=== PATIENT | male | born 1965 | race Caucasian/White ===

== ENCOUNTER 2019-06-03 18:51 | Observation (INO) | payer MEDICARE, OTHER ==
[~2019-06-03] VITALS: Ht 190.5 cm; Wt 129.5 kg
[2019-06-03 09:30] VITALS: BP 115/79; PULSE 79; RESP 18
[~2019-06-03 18:51] MED LIST: AMLO1CAP12 PO; ASPI-817 PO; ATOR40TA68 PO; CLOP75TA27 PO; FENO160T13 PO; METO-319 PO
[2019-06-03] MEDS ORDERED: ONDANSETRON 4 MG INJ IV STA (18:53)
[2019-06-03] MEDS ORDERED: KETOROLAC 15 MG INJ IV STA (18:53)
[2019-06-03] MEDS ORDERED: NACL 0.9% 3 ML SYG IV SCH (20:00)
[2019-06-03] MEDS ORDERED: hydrALAzine 20 MG INJ IV PRN (20:00)
[2019-06-03] MEDS ORDERED: BISACODYL (EC) 5 MG TAB PO PRN (20:00)
[2019-06-03] MEDS ORDERED: NITROGLYCERIN (SL) 0.4 MG TAB SL PRN (20:00)
[2019-06-03] MEDS ORDERED: morphine 2 MG INJ IV PRN (20:00)
[2019-06-03] MEDS ORDERED: ONDANSETRON 4 MG INJ IV PRN (20:00)
[2019-06-03] MEDS ORDERED: ACETAMINOPHEN 325 MG TAB PO PRN (20:00)
[2019-06-03] MEDS ORDERED: DOCUSATE SODIUM 100 MG CAP PO PRN (20:00)
[2019-06-03 21:00] VITALS: BP 115/79; PULSE 79; RESP 18
[2019-06-03] MEDS ORDERED: ATORVASTATIN 40 MG TAB PO SCH (21:00)
[2019-06-03 22:42] VITALS: Ht 190.5 cm; Wt 129.5 kg
[2019-06-04] VITALS: BP 104/68; PULSE 71; RESP 18
[2019-06-04 04:00] VITALS: BP 128/86; PULSE 59; RESP 18
[2019-06-04 07:22] VITALS: BP 109/75; PULSE 62; RESP 18
[2019-06-04] MEDS ORDERED: NON-FORMULARY/PATIENT OWN MED (Amlodipine Besylate/Benazepril (Amlodipine-Benazepril 10-20 PO SCH (09:00)
[2019-06-04] MEDS ORDERED: FENOFIBRATE 145 MG TAB PO SCH (09:00)
[2019-06-04] MEDS ORDERED: ASPIRIN (EC) 81 MG TAB PO SCH (09:00)
[2019-06-04] MEDS ORDERED: METOPROLOL (XL) 50 MG TAB PO SCH (09:00)
[2019-06-04] MEDS ORDERED: CLOPIDOGREL 75 MG TAB PO SCH (09:00)
[2019-06-04] MEDS ORDERED: AMLODIPINE 10 MG TAB PO SCH (09:00)
[2019-06-04] MEDS ORDERED: BENAZEPRIL 20 MG TAB PO SCH (09:00)
== END 2019-06-04 08:24 | disposition left against medical advice (07) ==
LOC: E/R 18:51 → 6WM 19:58 → INTOOBSV 19:58
PROVIDERS: ADMIT Family Medicine; ATTEND Family Medicine
DX: R07.9 Chest pain, unspecified (principal); I10 Essential (primary) hypertension; I25.10 Atherosclerotic heart disease of native coronary artery without angina pectoris; Z95.1 Presence of aortocoronary bypass graft; Z95.5 Presence of coronary angioplasty implant and graft; Z79.82 Long term (current) use of aspirin; E78.5 Hyperlipidemia, unspecified; E66.9 Obesity, unspecified; Z68.35 Body mass index [BMI] 35.0-35.9, adult; R73.03 Prediabetes
CPT/HCPCS: 36415; 71045; 80053; 80061; 82550; 82553; 83036; 83690; 83735; 83880; 84443; 84484; 85025; 85610; 85730; 93005; 96374; 96375; 99285; G0378; J1885; J2405; 99217